=== PATIENT | male | born 1985 | race Caucasian/White ===

== ENCOUNTER 2019-05-12 16:21 | Emergency (ER) | payer OTHER, SELFPAY ==
[2019-05-12 16:21] VITALS: BP 143/87; PULSE 78; RESP 16; TEMP 37.2; BMI 32.9
--- NOTE | 2019-05-12 17:10 | RAD_ITS ---
STUDY: X-RAY - LEFT ANKLE REASON FOR EXAM: Male, 34 years old. PT ROLLED ANKLE TODAY, ANTERIOR ANKLE and amp; TIB FIB PAIN TECHNIQUE: 3 view(s) of the ankle. COMPARISON: None. FINDINGS: Normal visualized distal tibia and fibula. Normal medial and lateral malleoli. Normal tibiotalar articulation and ankle mortise. Normal visualized talus and calcaneus. The visualized subtalar, talonavicular, calcaneocuboid and tarsal articulations are normal. The soft tissue structures are unremarkable. RAD/Ankle min 3 Views IMPRESSION: Normal x-ray examination of the ankle. Electronically Signed: Rashawn Galeano DO at 17:32 EST Tel , Service support ,
--- NOTE | 2019-05-12 17:10 | RAD_ITS ---
STUDY: X-RAY - LEFT TIBIA AND FIBULA REASON FOR EXAM: Male, 34 years old. PT ROLLED ANKLE TODAY, ANTERIOR ANKLE and amp; TIB FIB PAIN TECHNIQUE: 2 view(s) of the tibia and fibula were obtained. COMPARISON: None. FINDINGS: Normal visualized tibia. Normal visualized fibula. The soft tissue structures are unremarkable. RAD/Tibia & Fibula 2 Views IMPRESSION: Normal x-ray examination of the tibia and fibula. Electronically Signed: Rashawn Galenao DO at 17:32 EST Tel , Service support ,
--- NOTE | 2019-05-12 17:13 | ED.VIS.LOWEX ---
History of Present Illness Chief Complaint: Lower Extremity Injury Informant: Patient, Significant Other Occurred: Today Mechanism/Context: Fall Onset: Today Context: Sudden Onset Timing: Continuous Quality of Pain: Aching Location: Left ankle and leg Current Severity: Moderate Maximum Severity: Moderate Worsened by: Movement and walking Relieved by: Rest Associated Symptoms: Negative for: Parasthesia, Weakness, Loss of Funtion Narrative: 34-year-old male presents with left leg and ankle pain after mechanical fall. He stepped down off of the last step of his home injuring his left ankle and leg. He struck his carrasco on the last step as well. He denies prodromal symptoms. He did not hit his head or lose consciousness. He is ambulatory. He denies numbness tingling or weakness or any other injuries. Tetanus Immunization: Unknown Prior similar symptoms: No Recent Illness/Hospitalization: No Past Medical History - Allergies and Home Meds Allergies/Adverse Reactions: Allergies No Known Allergies Allergy (Verified 05/12/19 16:22) Primary Care Physician: Cm Gasca DO [Primary Care Provider] - Prior records reviewed: Yes Past Medical History: None Surgical History: no surgical history Lives: With Family Smoking Status: Never smoker Alcohol: Occasional Review of Systems All systems negative except as indicated General: Denies: Chills, Fever Eyes: Denies: Visual changes - bilaterally, Blurred Vision - bilaterally, Diplopia ENT: Denies: Rhinorrhea, Sore throat Cardiovascular: Denies: Chest pain, Palpitations, Heart racing Respiratory: Denies: Dyspnea, Sputum Gastrointestinal: Denies: Abdominal pain, Vomiting, Diarrhea, Constipation, Melena Genitourinary: Denies: Dysuria, Hematuria, Frequency Musculoskeletal: Reports: Swelling, Extremity Pain. Denies: Myalgias, Arthralgias, Neck pain, Back pain Skin: Reports: Abrasions. Denies: Rash, Abscess, Wounds Neurological: Denies: Headache, Weakness, Parasthesia, Numbness Psych: Denies: Depression, Anxiety Hematologic: Denies: Easy bruising, Easy bleeding Physical Exam Vital Signs/Narrative: Vital Signs Temp Pulse Resp BP 05/12/19 16:21 98.9 F 78 16 143/87 H Inital Vital Signs reviewed: Yes - Extremity Exam Left Tib Fib: Abrasion. Negative for: Contusion, Deformity, Edema, Hematoma, Limited ROM Left Ankle: - - Patient has an abrasion over his mid carrasco. There is some mild tenderness to palpation in this area. No lacerations. No deformity. Lateral malleolus tender on palpation with mild swelling. There is no other bony tenderness of the ankle or foot. There is no pain over the Achilles. DP and PT pulses are both normal. Normal capillary refill and sensation all 5 toes.. Negative for: Abrasion, Contusion, Deformity, Edema, Hematoma, Limited ROM General: Well nourished, Well developed Head: Normocephalic, Atraumatic Eyes: Perrl, EOMI ENT: No Trauma Neck: Nontender, Full ROM Cardiovascular: Regular rate, Regular rhythm, No murmurs Respiratory: No distress, CTA bilaterally, Chest nontender Abdomen: Soft, Nontender, Nondistended, Normal bowel sounds, No masses Back: Nontender Skin: Normal color, No rash, Trauma Neurological: Alert, Oriented x3 Psychological: Normal affect, Normal Mood Diagnostic/Tx/Re-eval - Medical Decision Making Patient declined analgesia. X-ray of the left ankle and left tibia/fibula are unremarkable. Patient reassured. Advised to rest ice and elevate. He will be prescribed Naprosyn. He will be given an Aircast. He will follow-up with his doctor. Discharged home with return precautions. ED Disposition - Plan for ED Patient: Disposition: Home or Assisted Living Diagnosis: Left ankle sprain, Contusion of left tibia, Abrasion, leg w/o infection Instructions: Sprain, Ankle, with X-Ray Prescriptions: Naproxen [Naprosyn] 500 mg PO BID #14 tab Prescription Printed Referrals: Cm Gasca DO [Primary Care Provider] -
[2019-05-12 17:46] VITALS: RESP 18
== END 2019-05-12 18:20 | disposition home or self-care (01) ==
PROVIDERS: Emergency Provider Physician Assistant Medical; PCP Family Medicine
DX: S93.402A Sprain of unspecified ligament of left ankle, initial encounter (principal); S80.12XA Contusion of left lower leg, initial encounter; S80.812A Abrasion, left lower leg, initial encounter; W10.8XXA Fall (on) (from) other stairs and steps, initial encounter; Y93.89 Activity, other specified; Y92.009 Unspecified place in unspecified non-institutional (private) residence as the place of occurrence of the external cause
CPT/HCPCS: 73590; 73610; 99283